=== PATIENT | male | born 1995 | race Native Hawaiian/Other Pacific Islander ===

== ENCOUNTER 2020-06-04 11:44 | Emergency (ER) | payer BC ==
[~2020-06-04] VITALS: Ht 170.2 cm; Wt 103.0 kg
[2020-06-04 11:58] VITALS: TEMP 100.7
[2020-06-04 12:16] LABS: PLATELET COUNT 277 K/uL (142-355)
[2020-06-04 12:19] LABS: POTASSIUM 3.6 mmol/L (3.6-5.2)
[2020-06-04 13:18] VITALS: BP 121/71
== END 2020-06-04 13:18 | disposition home or self-care (01) ==
LOC: ED 11:44
PROVIDERS: Hospitalist
DX: U07.1 COVID-19 (principal); J06.9 Acute upper respiratory infection, unspecified; R19.7 Diarrhea, unspecified; R50.9 Fever, unspecified; F17.210 Nicotine dependence, cigarettes, uncomplicated
CPT/HCPCS: 80053; 81000; 82150; 83690; 85027; 87502; 87635; 87651; 96360; 96365; 96374; 96375; 99284; J1100; J2405; U0003

== ENCOUNTER 2022-02-05 01:33 | Emergency (ER) | payer OTHER ==
[~2022-02-05] VITALS: Ht 170.2 cm; Wt 103.0 kg
[2022-02-05 06:20] VITALS: BP 140/77; TEMP 98.7
== END 2022-02-05 06:20 | disposition home or self-care (01) ==
LOC: ED 01:33
DX: S49.82XA Other specified injuries of left shoulder and upper arm, initial encounter (principal); S40.012A Contusion of left shoulder, initial encounter; W18.39XA Other fall on same level, initial encounter; Y92.89 Other specified places as the place of occurrence of the external cause
CPT/HCPCS: 99283; J1885